=== PATIENT | female | born 1985 | race Caucasian/White ===

== ENCOUNTER 2018-08-18 20:50 | Emergency (ER) | payer OTHER ==
[2018-08-18 21:18] VITALS: BP 123/83; PULSE 110; TEMP 98; BMI 22.8
--- NOTE | 2018-08-19 00:55 | PDOC ---
History of Present Illness - General Chief Complaint: Back Pain Stated Complaint: BACK PAIN Time Seen by Provider: 08/19/18 00:39 - History of Present Illness Initial Comments: 08/19/18 00:55 CHIEF COMPLAINT: back pain HISTORY OF PRESENT ILLNESS: 33 yo F presents to ED with mid back pain since yesterday. Patient states she fell backwards into a wall yesterday and was seen at [facility] ER where they diagnosed her with a "cervical sprain , but they only did x-rays at my neck and above." She reports pain to her left mid back that is worse with movement and palpation. She denies any loss of bowel or bladder function and is ambulatory with normal gait. She states that she was told at her hospital visit yesterday that she is . No recent travel or sick contacts. PAST MEDICAL HISTORY: Denies past medical history FAMILY HISTORY: Denies SOCIAL HISTORY: Denies tobacco, alcohol, illicit drug use. SURGICAL HISTORY: Denies ALLERGIES: No known drug allergies REVIEW OF SYSTEMS General/Constitutional: Denies fever or chills. Denies weakness, weight change. HEENT: Denies change in vision. Denies ear pain or discharge. Denies sore throat. Cardiovascular: Denies chest pain or shortness of breath. Respiratory: Denies cough, wheezing, or hemoptysis. Gastrointestinal: Denies nausea, vomiting, diarrhea or constipation. Denies rectal bleeding. Genitourinary: Denies dysuria, frequency, or change in urination. Musculoskeletal: Back pain since yesterday. Skin and breasts: Denies rash or easy bruising. Neurologic: Denies headache, vertigo, loss of consciousness, or loss of sensation. PHYSICAL EXAM General Appearance: Well-appearing, appropriately dressed. No apparent distress , no intoxication. HEENT: EOMI, PERRLA, normal ENT inspection, normal voice, TMs normal, pharynx normal. No conjunctival pallor. No photophobia, scleral icterus. Neck: Supple. Trachea midline. No tenderness, rigidity, carotid bruit, stridor , lymphadenopathy, or thyromegaly. Respiratory/Chest: Lungs CTAB. No shortness of breath, chest tenderness, respiratory distress, accessory muscle use. No crackles, rales, rhonchi, stridor , wheezing, dullness Cardiovascular: RRR. S1, S2. No JVD, murmur, bradycardia, tachycardia. Vascular Pulses: Dorsalis-Pedis (R): 2+, Dorsalis-Pedis (L): 2+ Gastrointestinal/Abdominal: Normal bowel sounds. Abdomen soft, non-distended. No tenderness or rebound tenderness. No organomegaly, pulsatile mass, guarding , hernia, hepatomegaly, splenomegaly. Lymphatic: No adenopathy, tenderness. Musculoskeletal/Extremities: No midline verterbral tenderness to cervical, thoracic, or lumbar spin. Mild tenderness to left paravertebral muscles at level of T3-T4. Normal inspection. FROM of all extremities, normal capillary refill. Pelvis Stable. No CVA tenderness. No tenderness to extremities, pedal edema, swelling, erythema or deformity. Integumentary: Appropriate color, dry, warm. No cyanosis, erythema, jaundice or rash Neurologic: automobile sales representative II-XII intact. Fully oriented, alert. Appropriate mood/affect. Motor strength 5/5. No appreciable EOM palsy, facial droop or sensory deficit. 08/19/18 02:07 Past History - Past Medical History Allergies/Adverse Reactions: Allergies Allergy/AdvReac Type Severity Reaction Status Date / Time No Known Allergies Allergy Verified 08/18/18 21:19 Home Medications: Ambulatory Orders Acetaminophen [Tylenol -] 500 mg PO Q6H #100 tablet 08/19/18 COPD: No Psychiatric Problems: Yes (ANXIETY) - Suicide/Smoking/Psychosocial Hx Smoking History: Current every day smoker Number of Cigarettes Smoked Daily: 2 Information on smoking cessation initiated: No *Physical Exam - Vital Signs Last Vital Signs Temp Pulse Resp BP Pulse Ox 98 F 110 H 18 123/83 100 08/18/18 21:16 08/18/18 21:16 08/18/18 21:16 08/18/18 21:16 08/18/18 21:16 Medical Decision Making - Medical Decision Making 08/19/18 02:10 33 yo F presents to ED with mid back pain since yesterday. -upreg, ua Tylenol for pain control, f/u with ortho for further evaluation. Advised patient to take medication as prescribed and follow up with ortho for further evaluation and possible MRI. Advised patient of signs and symptoms for return to ED. Patient verbalized understanding and agrees to plan. *DC/Admit/Observation/Transfer Diagnosis at time of Disposition: Back pain Qualifiers: Back pain location: thoracic back pain Chronicity: acute Back pain laterality: left Qualified Code(s): M54.6 - Pain in thoracic spine - Discharge Dispostion Disposition: HOME Condition at time of disposition: Stable Decision to Admit order: No - Prescriptions Prescriptions: Acetaminophen [Tylenol -] 500 mg PO Q6H #100 tablet - Referrals Referrals: Julio César Rico MD [Staff Physician] - Ted Pichardo MD [Staff Physician] - - Patient Instructions Printed Discharge Instructions: DI for Thoracic Back Pain Additional Instructions: As discussed, please take Tylenol for your back pain until you can be seen by orthopedics for possible physical therapy or MRI. If you develop any loss of bowel or bladder function, worsening pain, or unable to walk, please return to the ER. - Post Discharge Activity
[2018-08-19 01:40] LABS: HCG,QUALITATIVE URINE Positive
[2018-08-19 01:41] LABS: URINE APPEARANCE SLCLOUDY; URINE BILIRUBIN NEGATIVE (<2.0 mg/dL); URINE COLOR YELLOW; URINE GLUCOSE (UA) NEGATIVE (NEGATIVE); URINE KETONE 1+ (NEGATIVE); URINE LEUK ESTERASE TRACE (NEGATIVE); URINE NITRITE POSITIVE (NEGATIVE); URINE PROTEIN NEGATIVE (NEGATIVE); URINE UROBILINOGEN NEGATIVE mg/dL (0.2-1.0)
[2018-08-19 01:49] LABS: EPI CELLS RARE /HPF (FEW); URINE BACTERIA MANY /hpf (NONE SEEN); URINE MUCUS RARE
== END 2018-08-19 01:30 | disposition home or self-care (01) ==
LOC: JERFT 20:50
DX: O26.899 Other specified pregnancy related conditions, unspecified trimester (principal); S29.8XXA Other specified injuries of thorax, initial encounter; M54.6 Pain in thoracic spine; W01.198A Fall on same level from slipping, tripping and stumbling with subsequent striking against other object, initial encounter; Y93.89 Activity, other specified; Y92.89 Other specified places as the place of occurrence of the external cause; Y99.8 Other external cause status; Z3A.00 Weeks of gestation of pregnancy not specified
CPT/HCPCS: 81003; 81015; 84703; 99282-25